=== PATIENT | female | born 1965 | race Caucasian/White ===

== ENCOUNTER 2020-07-19 09:38 | Emergency (ER) | payer BC ==
[~2020-07-19] VITALS: Ht 170.2 cm; Wt 86.2 kg
[2020-07-19 09:47] VITALS: Ht 170.2 cm; Wt 86.2 kg
[2020-07-19 11:58] VITALS: BP 139/78
== END 2020-07-19 11:58 | disposition home or self-care (01) ==
LOC: ED 09:38
DX: M54.40 Lumbago with sciatica, unspecified side (principal)
CPT/HCPCS: J2270; Q0162